=== PATIENT | male | born 1995 | race Two or more races ===

== ENCOUNTER 2022-06-27 10:53 | Outpatient (CLI) | payer OTHER | END 2022-06-27 11:03 | disposition home or self-care (01) | LOC: SONOGRAMA 10:53 | PROVIDERS: ATTEND Pathology Anatomic Pathology & Clinical Pathology | DX: D44.0 Neoplasm of uncertain behavior of thyroid gland (principal); E07.9 Disorder of thyroid, unspecified; E06.3 Autoimmune thyroiditis ==

== ENCOUNTER 2023-04-06 10:17 | Outpatient (CLI) | payer OTHER | END 2023-04-06 10:19 | disposition home or self-care (01) | LOC: SONOGRAMA 10:17 | PROVIDERS: ATTEND Pathology Anatomic Pathology & Clinical Pathology | DX: E04.2 Nontoxic multinodular goiter (principal); D44.0 Neoplasm of uncertain behavior of thyroid gland ==